=== PATIENT | male | born 1990 | race Caucasian/White ===

== ENCOUNTER 2023-04-03 22:30 | Emergency (ER) | payer SELFPAY ==
[~2023-04-03] VITALS: Ht 180.3 cm; Wt 68.0 kg
[2023-04-03 22:55] VITALS: BP 131/86; PULSE 92; RESP 17; TEMP 97.9; O2SAT 95
[2023-04-04 02:42] VITALS: BP 131/86; PULSE 92; RESP 17; TEMP 97.9; O2SAT 95
== END 2023-04-04 02:42 | disposition home or self-care (01) ==
LOC: MED 22:30
DX: F10.129 Alcohol abuse with intoxication, unspecified (principal); Y90.9 Presence of alcohol in blood, level not specified
CPT/HCPCS: 99283